=== PATIENT | female | born 1995 | race Caucasian/White ===

== ENCOUNTER 2020-03-26 11:28 | Emergency (ER) | payer MEDICARE, SELFPAY ==
[2020-03-26 11:57] VITALS: BP 102/72; PULSE 94; RESP 16; TEMP 37.1; O2SAT 100
--- NOTE | 2020-03-26 12:01 | ED.URI ---
HPI - URI/Sore Throat General Chief Complaint: Upper Respiratory Infection Stated Complaint: nasal congestion/watery eyes/sinus pressure Time Seen by Provider: 03/26/20 12:01 Source: patient and RN notes reviewed Mode of arrival: ambulatory Limitations: no limitations History of Present Illness HPI Narrative: 24-year-old female presents to the urgent care with complaints of I think I have a sinus infection. Patient states she has had sinus pressure nasal drainage, ear pressure for the last 6 days. Yesterday the drainage increased. Has a history of sinus infections this time every year. Denies fevers, no nausea or vomiting. No chest pain, no shortness of breath, no cough. MD elicited complaint: rhinorrhea, nasal congestion and sinus pain Related Data Home Medications Medication Instructions Recorded Confirmed ethynodiol diac-eth estradiol tablet 03/26/20 03/26/20 [Luiz 1-50 (07)] oxcarbazepine 03/26/20 Allergies Allergy/AdvReac Type Severity Reaction Status Date / Time Macrolide Antibiotics Allergy Severe SEIZURE Verified 12/11/14 22:45 allantoin Allergy Unknown THROAT Unverified 11/10/14 14:48 SWELLING/SOB azithromycin Allergy Unknown Seizure Verified 03/26/20 11:46 benzalkonium chloride Allergy Unknown THROAT Unverified 11/10/14 14:48 SWELLING/SOB benzocaine Allergy Unknown THROAT Unverified 11/10/14 14:48 SWELLING/SOB carbamide peroxide Allergy Unknown THROAT Unverified 11/10/14 14:48 SWELLING/SOB chlorphenoxamine Allergy Unknown Other Verified 03/26/20 11:46 lidocaine Allergy Unknown Swelling Verified 03/26/20 11:46 of Lip/Tongue/Throat phenylpropanolamine Allergy Unknown Other Verified 03/26/20 11:46 zinc chloride Allergy Unknown THROAT Unverified 11/10/14 14:48 SWELLING/SOB MYCINS Allergy Severe SEIZURE Uncoded 11/10/14 14:50 Review of Systems Review of Systems: Narrative: CONSTITUTIONAL: Denies fever, chills, or sweats. EYES: Denies visual changes, redness, or discharge. ENT: Positive for rhinorrhea, congestion, sinus pain. Denies sore throat, or otalgia. CARDIOVASCULAR: Denies chest pain, palpitations, or edema. RESPIRATORY: Denies cough or dyspnea. GASTROINTESTINAL: Denies abdominal pain, nausea, vomiting, or diarrhea. GENITOURINARY: Denies dysuria or hematuria. SKIN: Denies rash or itching. MUSCULOSKELETAL: Denies back pain, joint pain, or myalgia. NEUROLOGIC: Denies headache, numbness, or weakness. PSYCHIATRIC: Denies anxiety or depression. All other systems reviewed are negative, except as documented in HPI. [facility] Family History Family History (Updated 10/16/15 @ 23:21 by DOCTOR UNKNOWN) Mother Patient's mother is in good health Father Patient's father is in good health Social History Social History Smoking status: Never smoker Alcohol intake: never Comments At the time of my signature, I reviewed and agree with the nursing past medical, surgical, social, and family history. There is no relevant family history pertinent to the patient complaint. Exam Narrative: Exam Narrative: GENERAL: This is a well-nourished, well-developed patient, mildly ill in appearance HEAD: normocephalic, atraumatic. EYES: PERRL. Sclera clear/white. Vision is grossly intact. EARS: External ears normal, auditory canals clear and without drainage. TMs clear fluid with a fluid line 3[address] the TM. No perforation. No erythema. NOSE: External nose normal. Positive for thick nasal discharge, nares positive redness and bilateral tuberance boggy THROAT: Mucous membranes moist, posterior pharynx marked amounts of thick posterior drainage clear to yellowish NECK: Neck supple, non-tender without lymphadenopathy, masses or thyromegaly. CARDIOVASCULAR: Regular rate and rhythm without murmurs, gallops, or rubs. RESPIRATORY: Clear to auscultation. Breath sounds equal bilaterally. No wheezes, rales, or rhonchi. GASTROINTESTINAL: Abdomen soft, non-tender, nondistended. SK
== END 2020-03-26 12:40 | disposition home or self-care (01) ==
PROVIDERS: Emergency Provider Nurse Practitioner
DX: J01.90 Acute sinusitis, unspecified (principal); G80.9 Cerebral palsy, unspecified
CPT/HCPCS: 99203; G0463

== ENCOUNTER 2020-03-29 14:35 | Emergency (ER) | payer MEDICARE, SELFPAY ==
[2020-03-29 14:51] VITALS: BP 138/83; PULSE 112; RESP 16; TEMP 36.2; O2SAT 100
--- NOTE | 2020-03-29 15:09 | ED.URI ---
HPI - URI/Sore Throat General Chief Complaint: Upper Respiratory Infection Stated Complaint: SINUS CONGESTION Time Seen by Provider: 03/29/20 15:02 Source: patient, RN notes reviewed and old records reviewed Mode of arrival: ambulatory Limitations: no limitations History of Present Illness HPI Narrative: Patient presents today requesting a rapid COVID-19 test. 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 She was seen at [facility] 3 days ago and was diagnosed with sinusitis and placed on amoxicillin. States her symptoms have been improving. Reports her nasal congestion and sinus pain has been improving, and she continues to have some mild postnasal drainage. Denies fever, loss of taste or smell, cough. She has also been taking Mucinex DM which has been providing some relief. Related Data Home Medications Medication Instructions Recorded Confirmed ethynodiol diac-eth estradiol tablet 03/26/20 03/26/20 [Luiz 1-50 (28)] oxcarbazepine 03/26/20 Calcium-Vitamin D 03/29/20 03/29/20 Allergies Allergy/AdvReac Type Severity Reaction Status Date / Time Macrolide Antibiotics Allergy Severe SEIZURE Verified 12/11/14 22:45 allantoin Allergy Unknown THROAT Unverified 11/10/14 14:48 SWELLING/SOB azithromycin Allergy Unknown Seizure Verified 03/26/20 11:46 benzalkonium chloride Allergy Unknown THROAT Unverified 11/10/14 14:48 SWELLING/SOB benzocaine Allergy Unknown THROAT Unverified 11/10/14 14:48 SWELLING/SOB carbamide peroxide Allergy Unknown THROAT Unverified 11/10/14 14:48 SWELLING/SOB chlorphenoxamine Allergy Unknown Other Verified 03/26/20 11:46 lidocaine Allergy Unknown Swelling Verified 03/26/20 11:46 of Lip/Tongue/Throat phenylpropanolamine Allergy Unknown Other Verified 03/26/20 11:46 zinc chloride Allergy Unknown THROAT Unverified 11/10/14 14:48 SWELLING/SOB MYCINS Allergy Severe SEIZURE Uncoded 11/10/14 14:50 Review of Systems Review of Systems: Narrative: CONSTITUTIONAL: Denies body aches, fever, chills, or sweats. EYES: Denies visual changes, redness, or discharge. ENT: Denies rhinorrhea, sore throat, or otalgia. + Postnasal drip, mild congestion CARDIOVASCULAR: Denies chest pain, palpitations, or edema. RESPIRATORY: Denies cough or dyspnea. GASTROINTESTINAL: Denies abdominal pain, nausea, vomiting, or diarrhea. GENITOURINARY: Denies dysuria or hematuria. SKIN: Denies rash, itching, or wounds. MUSCULOSKELETAL: Denies back pain, joint pain, or myalgia. NEUROLOGIC: Denies headache, numbness, tingling, or weakness. PSYCH: Denies depression or anxiety. [facility] Past Medical History Medical History (Updated 03/29/20 @ 15:14 by Vivian Perez, [facility], ) Cerebral palsy Seizures Family History Family History (Updated 10/16/15 @ 23:21 by DOCTOR UNKNOWN) Mother Patient's mother is in good health Father Patient's father is in good health Social History Social History Smoking status: Never smoker Alcohol intake: never Comments At time of signature, I have reviewed and agree with nursing past medical, surgical, social and family history unless otherwise noted. Please see nursing chart for further information. There is no relevant family history pertinent to the presenting complaint Exam Narrative: Exam Narrative: GENERAL: Well-appearing, well-nourished, and in no acute distress. HEAD: Normocephalic, atraumatic. EYES: EOMI. No redness or drainage. Conjunctivae normal. ENT: Mucous membranes pink and moist. Nares clear. No rhinorrhea. TMs normal bilaterally. Throat normal. Uvula midline. NECK: Normal AROM. Supple. No lymphadenopathy. CHEST: No respiratory distress. Clear to auscultation. HEART: Regular rate and rhythm. No murmur appreciated. Normal peripheral pulses. EXTREMITIES: Normal range of motion. No edema. SKIN: Warm, dry, no rash. Capillary refill normal. Normal skin turgor. NEURO: No focal deficits. Alert and orient
== END 2020-03-29 15:31 | disposition home or self-care (01) ==
PROVIDERS: Emergency Provider Nurse Practitioner
DX: Z20.822 Contact with and (suspected) exposure to COVID-19 (principal); G80.9 Cerebral palsy, unspecified
CPT/HCPCS: 87426; 99213; C9803; G0463